=== PATIENT | male | born 1980 | race Hispanic/Latino ===

== ENCOUNTER 2019-10-01 21:57 | Emergency (ER) | payer BC ==
[~2019-10-01] VITALS: Ht 177.8 cm; Wt 102.1 kg
[2019-10-01] MEDS ORDERED: KEFLEX500 MG PO (22:08)
[2019-10-01] MEDS ORDERED: ACETAMINOPHEN500 MG PO (22:08)
[2019-10-01] MEDS ORDERED: ULTRAM50 MG PO (23:30)
== END 2019-10-01 23:46 | disposition home or self-care (01) ==
LOC: ED 21:57
DX: J34.0 Abscess, furuncle and carbuncle of nose (principal); Z87.891 Personal history of nicotine dependence
CPT/HCPCS: 99283

== ENCOUNTER 2020-07-15 04:26 | Emergency (ER) | payer BC ==
[~2020-07-15] VITALS: Ht 177.8 cm; Wt 99.8 kg
[~2020-07-15 04:26] MED LIST: ACETAMINOPHEN500 MG PO; KEFLEX500 MG PO; ULTRAM50 MG PO
[2020-07-15] MEDS ORDERED: OMEPRAZOLE20 MG PO (05:29)
[2020-07-15] MEDS ORDERED: PRILOSEC OTC20 MG PO (05:47)
== END 2020-07-15 06:02 | disposition home or self-care (01) ==
LOC: ED 04:26
DX: K30 Functional dyspepsia (principal); Z87.891 Personal history of nicotine dependence; Z79.899 Other long term (current) drug therapy
CPT/HCPCS: 81001; 87088; 99284

== ENCOUNTER 2020-07-31 03:11 | Emergency (ER) | payer BC ==
[~2020-07-31] VITALS: Ht 177.8 cm; Wt 99.8 kg
[~2020-07-31 03:11] MED LIST changes: +OMEPRAZOLE20 MG PO; +PRILOSEC OTC20 MG PO
--- OUTSIDE RECORDS SUMMARY | 2020-07-31 03:14 | XMS ---
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 - 2 Visits in 30 Days CARE PROVIDERS There are no care providers on record at this time. Saeid has no Care Guidelines for this patient. [facility] VIS[facility] COUNT (12 MO.) [facility] T[facility] NOTE: Visits indicate total known visits. ED/C VISIT TRACKING (12 MO.) [facility] COMPLAINT: - ABDOMINAL PAIN 07/15/2020 04:26 [facility] [place] TYPE: Emergency COMPLAINT: - ADBOMINAL PAIN DIAGNOSES: - Personal history of nicotine dependence - Epigastric pain - Functional dyspepsia - Other intermodal truck driver (current) drug therapy 10/01/2019 21:58 [facility] [place] TYPE: Emergency COMPLAINT: - NOSE PAIN DIAGNOSES: - Personal history of nicotine dependence - Abscess, furuncle and carbuncle of nose INPATIENT VISIT TRACKING (12 MO.) No inpatient visits to display in this time frame [email or web address]
[2020-07-31] MEDS ORDERED: CARAFATE1 GM PO (05:54)
== END 2020-07-31 06:46 | disposition home or self-care (01) ==
LOC: ED 03:11
DX: K21.9 Gastro-esophageal reflux disease without esophagitis (principal); Z79.899 Other long term (current) drug therapy
CPT/HCPCS: 80053; 83690; 85025; 96374; 99284-25; J1170